=== PATIENT | female | born 1985 | race Caucasian/White ===

== ENCOUNTER 2017-01-17 12:33 | Outpatient (CLI) | payer OTHER ==
[~2017-01-17] VITALS: Ht 167.6 cm; Wt 92.9 kg
[~2017-01-17 12:33] MED LIST: FER325 PO; ONDA4TAB8 PO; PREN1TAB49 PO
[2017-01-17 12:43] VITALS: Ht 167.6 cm; Wt 92.9 kg
[2017-01-17 12:44] VITALS: BP 120/76; PULSE 81; RESP 20
[2017-01-17] MEDS ORDERED: LACTATED RINGER'S 1,000 ML IV PRN (13:00)
[2017-01-17] MEDS ORDERED: ONDANSETRON 4 MG INJ IV PRN (13:00)
[2017-01-17 13:41] LABS: ADD SCAN DIFF NO
[2017-01-17 13:47] LABS: BASOPHILS % 0.1 % (0.0-2.0); EOSINOPHILS # 0.1 10^3/ul (0.0-0.5); EOSINOPHILS % 1.1 % (0.0-7.0); HEMATOCRIT 35.9 % (37.0-47.0); LYMPHOCYTES # 1.7 10^3/ul (0.8-2.9); LYMPHOCYTES % 21.5 % (15.0-51.0); MEAN CORPUSCULAR HGB CONC 33.4 g/dl (32.0-37.0); MEAN CORPUSCULAR VOLUME 83.7 fl (82.0-101.0); MEAN PLATELET VOLUME 10.1 fl (7.4-10.4); MONOCYTE # 0.5 10^3/ul (0.3-0.9); MONOCYTES % 5.9 % (0.0-11.0); NEUTROPHIL # 5.6 10^3/ul (1.6-7.5); NEUTROPHILS % 70.9 % (39.0-77.0); PLATELET COUNT 279 10^3/UL (140-415); RED BLOOD COUNT 4.29 10^6/ul (4.20-5.40); RED CELL DISTRIBUTION WIDTH 14.1 % (11.5-14.5)
[2017-01-17 13:51] LABS: ADD UMIC NO; URINE BILIRUBIN (Dip) NEGATIVE (NEGATIVE); URINE BLOOD (Dip) NEGATIVE (NEGATIVE); URINE COLOR LT. YELLOW (YELLOW); URINE GLUCOSE (Dip) NEGATIVE (NEGATIVE); URINE KETONES (Dip) NEGATIVE (NEGATIVE); URINE LEUKOCYTE ESTERASE (Dip) NEGATIVE (NEGATIVE); URINE NITRITE (Dip) NEGATIVE (NEGATIVE); URINE TOTAL PROTEIN (Dip) NEGATIVE (NEGATIVE); URINE UROBILINOGEN (Dip) 0.2 E.U./dL (0.1-1.0)
--- NOTE | 2017-01-17 13:54 | RADRPT ---
PROCEDURE: US OB CLINICAL INDICATION: labor, LAISHA TECHNIQUE: Multiple sonographic images of the pelvis were obtained. The images were reviewed on a PACS workstation. COMPARISON: None FINDINGS: The cervix is not well visualized. There is a single viable intrauterine gestation. Cardiac activity is present with 134 beats per minute. There is a variable presentation. The placenta is posterior. There is no evidence for an abruption or placenta previa. There is a normal amount of amniotic fluid with a maximum vertical pocket of 4.9 cm. Measurements were made in order to determine age. The results are as follows (cm): BPD =4.62 HC =18.03 AC =14.81 FL =3.47 Estimated gestational age by ultrasound of approximately 20 weeks, 3 days. The estimated date of delivery by ultrasound is 06/03/2017. Reported gestational age by LMP of approximately 20 weeks, 3 days. The reported date of delivery by LMP is 06/03/2017. EFW = 354 grams (46th percentile) IMPRESSION: Single viable intrauterine gestation of approximately 20 weeks, 3 days . The estimated date of delivery is 06/03/2017 . Dating by ultrasound is consistent with dating by LMP. Estimated weight is in the 46th percentile. There is a normal amniotic fluid with a maximum vertical pocket of 4.9 cm. RPTAT: EE Physician Jimi Date Time Electronically viewed and signed by Physician Jimi on 01/17/2017 13:54 /
[2017-01-17 13:56] LABS: ALBUMIN 3.6 g/dl (3.3-4.9)
[2017-01-17 13:57] LABS: POTASSIUM 3.4 mmol/L (3.5-5.1)
[2017-01-17 13:59] LABS: ALBUMIN/GLOBULIN RATIO 1.16; BILIRUBIN,INDIRECT 0.2 mg/dl (0-1.1); BILIRUBIN,TOTAL 0.2 mg/dl (0.2-1.3); CREATININE 0.49 mg/dl (0.44-1.00); TOTAL PROTEIN 6.7 g/dl (6.1-8.1)
[2017-01-17 14:00] LABS: CALCIUM 8.9 mg/dl (8.4-10.2)
--- NOTE | 2017-01-17 14:19 | TRIAGE ---
OB Triage Datetime Report Generated by CPN: 01/17/2017 14:18 Datetime: 01/17/2017 14:00 Stage of : OB Triage Maternal Assessment Level of Consciousness: Fully Conscious Labor Evaluation Frequency: NONE Monitor Mode: External Resting Tone [place]: Relaxed Monitor Mode: Doppler (Annotations: FHT'S DOPPLED IN THE 130'S) Pain Assessment Pain Scale: 0 Pain Presence: None/Denies Pain Goal: 3 Vaginal Exam Membrane Status: Intact Vaginal Bleeding: None Datetime: 01/17/2017 12:45 Assessment Type: Triage Maternal Assessment Level of Consciousness: Fully Conscious DTR's/Clonus: No Clonus Headache: Denies Blurred Vision: No Respiratory Effort: Unlabored; Regular Rhythm; Equal Expansion Nausea/Vomiting: Denies RUQ Epigastric Pain: Denies Lower Extremities Edema: Bilateral Lower Extremities Degree: None Upper Extremities Edema: None Degree: None Facial Edema: None Fall Risk Assessment History of Falling: (0) No Secondary Diagnosis: (0) No Ambulatory Aid: (0) Bedrest/Nurse Assist IV Therapy: (0) No Gait: (0) Normal/Bedrest/Immobile Mental Status: (0) Oriented to Own Ability Fall Score: 0 Fall Risk Score Definition: No Risk: No action required Datetime: 01/17/2017 12:39 EGA: 20.3 Datetime: 01/17/2017 12:36 Monitor Mode: External Heart Rate FHR Baseline Rate: 130 Monitor Mode: Auscultation/Fetoscope Datetime: 01/17/2017 12:35 Time of Arrival: 01/17/2017 12:28 Arrived By: Wheelchair Arrived From: Home Chief Complaint: NAUSEA SINCE LAST WEEK MONDAY, VOMITTING TODAY. Movement: Present Rupture of Membranes: Denies Vaginal Bleeding: None Vaginal Discharge: Denies Recent Sexual Intercouse: Denies Abdominal Trauma: Not Applicable Patient Complaints: Nausea; Other Provider Notified: SABA Initial Plan: JEANETTE
--- NOTE | 2017-01-17 14:21 | QN ---
Documentation Comment 20+wks GA with Nausea,Currently feels improved +FM No Vb No LOF No CTXs [place] No CTXs Labs reviewed Ultrasound reviewed -->patient is discharged with instructions --->patient's questions answered APOORVA WALTER M.D. Jan 17, 2017 14:21
== END 2017-01-17 15:02 | disposition home or self-care (01) ==
LOC: OBT 12:33 → L-D 12:34 → OBT 15:02
PROVIDERS: ATTEND Obstetrics & Gynecology
DX: O21.9 Vomiting of pregnancy, unspecified (principal); Z3A.20 20 weeks gestation of pregnancy
CPT/HCPCS: 36415; 76815; 80053; 81003; 85025; 96360; J2405; Z7500; G0463

== ENCOUNTER 2017-03-26 00:24 | Outpatient (CLI) | payer OTHER ==
[~2017-03-26] VITALS: Ht 167.6 cm; Wt 96.8 kg
[2017-03-26 00:43] VITALS: Ht 167.6 cm; Wt 96.8 kg
[2017-03-26] MEDS ORDERED: FERR325C PO (00:44)
[2017-03-26] MEDS ORDERED: CEPH500C PO (00:45)
[2017-03-26] MEDS ORDERED: LACTATED RINGER'S 1,000 ML IV* PRN (01:00)
[2017-03-26 02:01] LABS: ADD SCAN DIFF NO
[2017-03-26 02:02] LABS: BASOPHILS % 0.4 % (0.0-2.0); EOSINOPHILS # 0.1 10^3/ul (0.0-0.5); EOSINOPHILS % 1.4 % (0.0-7.0); HEMATOCRIT 32.1 % (37.0-47.0); HEMOGLOBIN 10.5 g/dl (12.0-16.0); LYMPHOCYTES # 1.8 10^3/ul (0.8-2.9); MEAN CORPUSCULAR HEMOGLOBIN 26.9 pg (29.0-33.0); MEAN CORPUSCULAR HGB CONC 32.7 g/dl (32.0-37.0); MEAN CORPUSCULAR VOLUME 82.3 fl (82.0-101.0); MEAN PLATELET VOLUME 10.1 fl (7.4-10.4); MONOCYTE # 0.6 10^3/ul (0.3-0.9); MONOCYTES % 6.9 % (0.0-11.0); NEUTROPHIL # 5.7 10^3/ul (1.6-7.5); NEUTROPHILS % 68.3 % (39.0-77.0); PLATELET COUNT 287 10^3/UL (140-415); RED CELL DISTRIBUTION WIDTH 15.3 % (11.5-14.5); WHITE BLOOD COUNT 8.3 10^3/ul (4.8-10.8)
--- NOTE | 2017-03-26 02:05 | PN ---
Date/Time of Note Date/Time of Note DATE: 03/26/17 TIME: 01:58 OB Subjective Subjective Subjective 31 yo P4034 @ 30.1 wks, presents with abdominal pain. She is currently being treated for a UTI w Keflex Good FM, no ctx or bleeding or LOF OB Objective Objective Objective VS: 147/85, 94, 97.7, 18 Abdomen- gravid, n/t SVE- deferred FHT- 120's; Cat I [place]- no ctx Abdomen: WNL Membranes: Intact Heart Rate: 120's Varibility: Moderate OB Assessment/Plan Other Assessment: 31 yo P4034 @ 30wks 1 day, presents w mildly elevated BP's - reassuring FHT Other plan: PIH labs sent IV hydration Simethicone for gas pain d/c home if nml PIH labs not in PTL SINDY BAKER MD March 26, 2017 02:03
[2017-03-26 02:06] LABS: ADD UMIC YES; URINE BILIRUBIN (Dip) NEGATIVE (NEGATIVE); URINE BLOOD (Dip) NEGATIVE (NEGATIVE); URINE COLOR LT. YELLOW (YELLOW); URINE GLUCOSE (Dip) NEGATIVE (NEGATIVE); URINE KETONES (Dip) NEGATIVE (NEGATIVE); URINE LEUKOCYTE ESTERASE (Dip) TRACE (NEGATIVE); URINE NITRITE (Dip) NEGATIVE (NEGATIVE); URINE TOTAL PROTEIN (Dip) NEGATIVE (NEGATIVE); URINE UROBILINOGEN (Dip) 0.2 E.U./dL (0.1-1.0)
[2017-03-26 02:21] LABS: ALBUMIN 3.2 g/dl (3.3-4.9)
[2017-03-26 02:24] LABS: ALBUMIN/GLOBULIN RATIO 0.96; BILIRUBIN,INDIRECT 0.3 mg/dl (0-1.1); BILIRUBIN,TOTAL 0.3 mg/dl (0.2-1.3); CREATININE 0.45 mg/dl (0.44-1.00); PARTIAL THROMBOPLASTIN TIME 24.8 Sec (25.0-35.0); TOTAL PROTEIN 6.5 g/dl (6.1-8.1)
[2017-03-26 02:25] LABS: CALCIUM 8.6 mg/dl (8.4-10.2); URIC ACID 3.9 mg/dl (3.1-7.9)
[2017-03-26 02:34] LABS: POTASSIUM 2.5 mmol/L (3.5-5.1)
[2017-03-26 02:50] LABS: BACTERIA,URINE MANY; SQUAMOUS EPITHELIAL CELL,UR MANY; URINE RBCS 0-2 /HPF (0)
[2017-03-26] MEDS ORDERED: POTASSIUM CHLORIDE 20 MEQ in SOD CHLORIDE 0.9% 100 ML IVPB ONE (03:00)
[2017-03-26] MEDS ORDERED: POTASSIUM CHLORIDE 30 MEQ in SOD CHLORIDE 0.9% 150 ML IVPB ONE (03:00)
[2017-03-26 05:09] LABS: INR 1.02; PROTIME 13.4 Sec (12.2-14.2)
--- NOTE | 2017-03-26 07:54 | TRIAGE ---
OB Triage Datetime Report Generated by CPN: 03/26/2017 07:54 Datetime: 03/26/2017 06:48 Stage of : OB Triage Datetime: 03/26/2017 06:47 Labor Evaluation Frequency: 0 Monitor Mode: External Duration (sec)2399: 0 Pattern: Normal: <= 5 Contractions in 10 Minutes Heart Rate FHR Baseline Rate: 125 FHR Baseline Changes: No Baseline Change Variability: Moderate 6-25 bpm Accelerations: 15X15 Decelerations: Variable Datetime: 03/26/2017 06:00 Labor Evaluation Frequency: 0 Monitor Mode: External Duration (sec)2399: 0 Pattern: Normal: <= 5 Contractions in 10 Minutes Heart Rate FHR Baseline Rate: 130 Monitor Mode: External US FHR Baseline Changes: No Baseline Change Variability: Moderate 6-25 bpm Datetime: 03/26/2017 05:00 Labor Evaluation Frequency: 0 Monitor Mode: External Duration (sec)2399: 0 Pattern: Normal: <= 5 Contractions in 10 Minutes Heart Rate FHR Baseline Rate: 130 Monitor Mode: External US FHR Baseline Changes: No Baseline Change Variability: Moderate 6-25 bpm Datetime: 03/26/2017 04:00 Labor Evaluation Frequency: 0 Monitor Mode: External Duration (sec)2399: 0 Pattern: Normal: <= 5 Contractions in 10 Minutes Heart Rate FHR Baseline Rate: 125 Monitor Mode: External US FHR Baseline Changes: No Baseline Change Variability: Moderate 6-25 bpm Accelerations: 15X15 Datetime: 03/26/2017 03:00 Labor Evaluation Frequency: 0 Monitor Mode: External Duration (sec)2399: 0 Pattern: Normal: <= 5 Contractions in 10 Minutes Heart Rate FHR Baseline Rate: 125 Monitor Mode: External US FHR Baseline Changes: No Baseline Change Variability: Moderate 6-25 bpm Datetime: 03/26/2017 02:00 Labor Evaluation Frequency: NONE Monitor Mode: External Duration (sec)2399: NONE Pattern: Normal: <= 5 Contractions in 10 Minutes Heart Rate FHR Baseline Rate: 120 Monitor Mode: External US FHR Baseline Changes: No Baseline Change Variability: Moderate 6-25 bpm Accelerations: 15X15 Datetime: 03/26/2017 01:56 Monitor Mode: Palpation Resting Tone [place]: Relaxed Datetime: 03/26/2017 01:53 Stage of : OB Triage Datetime: 03/26/2017 01:00 Labor Evaluation Frequency: NONE Monitor Mode: External Duration (sec)2399: NONE Pattern: Normal: <= 5 Contractions in 10 Minutes Heart Rate FHR Baseline Rate: 115 Monitor Mode: External US FHR Baseline Changes: No Baseline Change Variability: Moderate 6-25 bpm Accelerations: 15X15 Decelerations: Variable Datetime: 03/26/2017 00:37 EGA: 30.1 Datetime: 03/26/2017 00:36 Time of Arrival: 03/26/2017 00:16 Arrived By: Wheelchair Arrived From: Home Chief Complaint: ABD PAIN/PRESSURE SINCE 2229 Movement: Present Contractions: Irregular Time Contractions Began: 03/26/2017 22:30 Contractions: Q10MIN Rupture of Membranes: Denies Vaginal Bleeding: None Vaginal Discharge: Denies Recent Sexual Intercouse: Denies Abdominal Trauma: Not Applicable Patient Complaints: Contractions Time Provider Notified: 03/26/2017 00:52 Provider Notified: [place] Initial Plan: EFM, CALL MD Datetime: 03/26/2017 00:35 Stage of : OB Triage Assessment Type: Triage Maternal Assessment Level of Consciousness: Fully Conscious DTR's/Clonus: DTRs 1+ Headache: Generalized Blurred Vision: No Breath Sounds, Left: Clear and Equal Breath Sounds, Right: Clear and Equal Nausea/Vomiting: Denies RUQ Epigastric Pain: Denies Lower Extremities Edema: Bilateral Lower Extremities Degree: 2+ Upper Extremities Edema: None Facial Edema: None Temperature Route: Oral Fall Risk Assessment History of Falling: (0) No Secondary Diagnosis: (0) No Ambulatory Aid: (0) Bedrest/Nurse Assist IV Therapy: (0) No Gait: (0) Normal/Bedrest/Immobile Mental Status: (0) Oriented to Own Ability Fall Score: 0 Fall Risk Score Definition: No Risk: No action required Datetime: 03/26/2017 00:32 Monitor Mode: Palpation Monitor Mode: External Resting Tone [place]: Relaxed Monitor Mode: External US
== END 2017-03-26 07:00 | disposition home or self-care (01) ==
LOC: MERGE 00:24 → OBT 00:24 → L-D 00:25 → OBT 07:00
PROVIDERS: ATTEND Obstetrics & Gynecology
DX: O26.893 Other specified pregnancy related conditions, third trimester (principal); R10.9 Unspecified abdominal pain; R03.0 Elevated blood-pressure reading, without diagnosis of hypertension; Z87.440 Personal history of urinary (tract) infections; Z3A.30 30 weeks gestation of pregnancy
CPT/HCPCS: 80053; 81001; 81003; 84132; 84560; 85025; 85384; 85610; 85730; J3480; Z7610; 36415; 96360; 96361; 96368; G0463

== ENCOUNTER 2017-04-03 20:16 | Outpatient (CLI) | payer OTHER ==
[~2017-04-03] VITALS: Ht 167.6 cm; Wt 96.9 kg
[~2017-04-03 20:16] MED LIST changes: +CEPH500C PO; +FERR325C PO
[2017-04-03 20:39] VITALS: Ht 167.6 cm; Wt 96.9 kg
[2017-04-03 20:40] VITALS: BP 124/83; PULSE 137; RESP 20
--- NOTE | 2017-04-03 21:10 | PN ---
Date/Time of Note Date/Time of Note DATE: 04/03/17 TIME: 21:09 OB Subjective Subjective Subjective Patient is a 31-year-old 8 para 4 at 31 weeks of gestation presents with pelvic cramping and lower back pain Patient reports abnormal blood pressures throughout this She reports a headache at this time, no shortness of breath and no chest pain Prior OB history significant for 4 She received care at [facility] OB Objective Objective Objective Blood pressure 124/97 HEENT: WNL Heart: Rhythm Normal Lungs: Clear, Equal Abdomen: WNL Extremities: Normal Reflexes: Normal Heart Rate: 140's Accelerations: Accelerations Present Decelerations: No Decelerations Contractions on Admission: None OB Assessment/Plan Other Assessment: 31 weeks of gestation rule out PIH Other plan: IV fluids PIH labs Tylenol for headache Complete OB ultrasound including BPP and LAISHA TOMMY WHIPPLE MD April 03, 2017 21:10
[2017-04-03] MEDS ORDERED: ACETAMINOPHEN 500 MG TAB PO STA (22:00)
[2017-04-03] MEDS: LACTATED RINGER'S 1,000 ML IV SCH ×2 (22:10→23:49)
[2017-04-03 22:33] LABS: ADD SCAN DIFF NO
[2017-04-03 22:37] LABS: BASOPHILS % 0.2 % (0.0-2.0); EOSINOPHILS % 0.4 % (0.0-7.0); HEMATOCRIT 30.9 % (37.0-47.0); HEMOGLOBIN 10.2 g/dl (12.0-16.0); LYMPHOCYTES # 1.1 10^3/ul (0.8-2.9); LYMPHOCYTES % 10.8 % (15.0-51.0); MEAN CORPUSCULAR HEMOGLOBIN 27.3 pg (29.0-33.0); MEAN CORPUSCULAR VOLUME 82.8 fl (82.0-101.0); MEAN PLATELET VOLUME 10.5 fl (7.4-10.4); MONOCYTE # 0.6 10^3/ul (0.3-0.9); MONOCYTES % 5.7 % (0.0-11.0); NEUTROPHIL # 8.1 10^3/ul (1.6-7.5); NEUTROPHILS % 82.3 % (39.0-77.0); PLATELET COUNT 209 10^3/UL (140-415); RED BLOOD COUNT 3.73 10^6/ul (4.20-5.40); RED CELL DISTRIBUTION WIDTH 17.5 % (11.5-14.5); WHITE BLOOD COUNT 9.8 10^3/ul (4.8-10.8)
[2017-04-03 22:38] LABS: ADD UMIC NO; URINE BILIRUBIN (Dip) NEGATIVE (NEGATIVE); URINE BLOOD (Dip) NEGATIVE (NEGATIVE); URINE COLOR LT. YELLOW (YELLOW); URINE GLUCOSE (Dip) NEGATIVE (NEGATIVE); URINE KETONES (Dip) NEGATIVE (NEGATIVE); URINE LEUKOCYTE ESTERASE (Dip) NEGATIVE (NEGATIVE); URINE NITRITE (Dip) NEGATIVE (NEGATIVE); URINE TOTAL PROTEIN (Dip) NEGATIVE (NEGATIVE); URINE UROBILINOGEN (Dip) 2.0 E.U./dL (0.1-1.0)
[2017-04-03 22:47] LABS: INR 1.07; PROTIME 13.9 Sec (12.2-14.2); PT RATIO 1.1
[2017-04-03 22:48] LABS: PARTIAL THROMBOPLASTIN TIME 25.8 Sec (25.0-35.0)
[2017-04-03 22:49] LABS: ALBUMIN/GLOBULIN RATIO 0.96; BILIRUBIN,INDIRECT 0.7 mg/dl (0-1.1); BILIRUBIN,TOTAL 0.7 mg/dl (0.2-1.3); CREATININE 0.45 mg/dl (0.44-1.00); TOTAL PROTEIN 6.1 g/dl (6.1-8.1)
[2017-04-03 22:50] LABS: URIC ACID 3.6 mg/dl (3.1-7.9)
[2017-04-03 22:57] LABS: POTASSIUM 2.6 mmol/L (3.5-5.1)
[2017-04-03] MEDS ORDERED: POTASSIUM CHLORIDE (SR) 20 MEQ TAB PO STA (23:16)
--- NOTE | 2017-04-03 23:36 | RADRPT ---
PROCEDURE: US OB. US OB Estimated Weight CLINICAL INDICATION: PAIN TECHNIQUE: Multiple sonographic images of the pelvis were obtained. The images were reviewed on a PACS workstation. COMPARISON: No prior studies are available for comparison. FINDINGS: There is a single viable intrauterine gestation. Cardiac activity is present with 163 beats per min [place]. There is a vertex presentation. Measurements were made in order to determine age. The results are as follows: BPD =7.8 cm. HC =28.8 cm. AC =27.8 cm. FL =6.2 cm. Estimated gestational age of approximately 32 weeks and 0 days. The estimated date of delivery is 05/29/2017. Estimated delivery date by last menstrual period is 0 06/03/2017 The EFW = 1873 grams . 61.2 percentile The placenta is posterior, grade 2. There is no evidence for an abruption or placenta previa. There is a normal appearing amount of amniotic fluid . IMPRESSION: Single viable intrauterine gestation of approximately 32 weeks and 0 days. The estimated date of de livery is 05/29/2017. RPTAT: HBST .Franklin Mejia MD, MD Date Time Electronically viewed and signed by .Franklin Mejia MD, MD on 04/03/2017 23:35 .T/
--- NOTE | 2017-04-03 23:37 | RADRPT ---
PROCEDURE: US biophysical profile. CLINICAL INDICATION: PAIN TECHNIQUE: Multiple sonographic images of the pelvis were obtained. The images were reviewed on a PACS workstation. COMPARISON: No prior studies are available for comparison. FINDINGS: There is a single viable intrauterine gestation. There is a posterior grade 2 placenta. Amniotic f luid index is measured at 10.2 cm. Results of the biophysical profile are as follows breathing movement = 2/2 Gross body movement = 2/2 tone = 2/2 Quantitative amniotic fluid volume = 2/2. This yields a biophysical profile score of 8/8. IMPRESSION: Single viable intrauterine gestation, with biophysical profile of 8/8. RPTAT: HBST .Franklin Mejia MD, MD Date Time Electronically viewed and signed by .Franklin Mejia MD, MD on 04/03/2017 23:37 .T/
== END 2017-04-04 01:53 | disposition home or self-care (01) ==
LOC: OBT 20:16 → L-D 20:17 → OBT 04-04 01:53
PROVIDERS: ATTEND Obstetrics & Gynecology Gynecology
DX: O26.893 Other specified pregnancy related conditions, third trimester (principal); R10.2 Pelvic and perineal pain; M54.5 Low back pain; Z3A.31 31 weeks gestation of pregnancy
CPT/HCPCS: 36415; 76815; 76818; 80053; 81003; 84560; 85025; 85610; 85730; 87086; 96360; 96361; J7120; Z7500; Z7610; G0463

== ENCOUNTER 2018-03-12 08:36 | Emergency (ER) | END 2018-03-12 11:38 | disposition home or self-care (01) ==

== ENCOUNTER 2018-08-29 21:54 | Emergency (ER) | END 2018-08-29 22:56 | disposition home or self-care (01) ==

== ENCOUNTER 2018-08-31 15:42 | Emergency (ER) | END 2018-08-31 19:53 | disposition home or self-care (01) ==

== ENCOUNTER 2019-07-23 19:31 | Emergency (ER) | payer SELFPAY ==
[~2019-07-23] VITALS: Ht 167.6 cm; Wt 88.1 kg
[~2019-07-23 19:31] MED LIST changes: +BEN25 PO; -CEPH500C PO; +DIAZ5TAB PO; -FER325 PO; +LORA-441 PO; +ONDA4TAB14 PO; -ONDA4TAB8 PO; +PRED20TA PO; -PREN1TAB49 PO
[2019-07-23 19:34] VITALS: BP 158/99; PULSE 102; RESP 18; Ht 167.6 cm; Wt 88.1 kg
== END 2019-07-23 20:45 | disposition left against medical advice (07) ==
LOC: FTE 19:31
DX: Z53.21 Procedure and treatment not carried out due to patient leaving prior to being seen by health care provider (principal)